=== PATIENT | male | born 1940 | race Caucasian/White ===

== ENCOUNTER 2017-08-29 07:32 | Inpatient (IN) | payer OTHER ==
[~2017-08-29] VITALS: Ht 182.9 cm; Wt 96.6 kg
[2017-08-29 07:33] VITALS: BP 137/90
[2017-08-29 08:17] LABS: BE -3.8 mmol/L (-2 to +3); HCO3 19.8 mmol/L (22.0-26.0); PCO2 32.6 mmHg (35.0-45.0); PO2 75.2 mmHg (75.0-100.0); pH 7.401 (7.340-7.450)
[2017-08-29 08:18] LABS: ABSOLUTE EOSINOPHILS 0.2 thou/uL (0.0-0.7); ABSOLUTE LYMPHOCYTES 2.1 thou/uL (0.8-5.3); ABSOLUTE NEUTROPHILS 4.9 thou/uL (1.6-8.1); BASOPHILS 0.6 %; EOSINOPHILS 2.3 %; HEMATOCRIT 48.1 % (42.0-52.0); HEMOGLOBIN 16.3 gm/dL (14.0-18.0); LYMPHOCYTES 25.3 %; MCH 29.7 pg (26.0-34.0); MCHC 33.8 g/dL (28.0-37.0); MCV 87.9 fL (80.0-100.0); MPV 8.8 fl. (7.2-11.1); NUCLEATED RBCS 0 /100WBC; PLATELET COUNT* 270 thou/uL (150-400); POLYS 59.8 %; RBC 5.48 mil/uL (4.50-6.00); RDW-CV 13.6 % (10.5-14.5); WBC 8.2 thou/uL (4.0-11.0)
[2017-08-29 08:39] LABS: ANION GAP 11 mmol/L (7-16); BUN 18 mg/dL (7-18); CALCIUM 9.7 mg/dL (8.5-10.1); CHLORIDE 95 mmol/L (98-107); CO2 25 mmol/L (21-32); CREATININE 1.3 mg/dL (0.6-1.3); GLUCOSE 171 mg/dL (70-99); SODIUM 131 mmol/L (136-145)
[2017-08-29 08:42] LABS: APTT 29.3 Seconds (25.0-31.3); INR 1.1; PROTIME 10.7 Seconds (9.20-11.50)
[2017-08-29] MEDS ORDERED: MELATONIN5 M1 PO (08:43)
[2017-08-29] MEDS ORDERED: ACETAMINOP160 MG/5 M PO (08:43)
[2017-08-29] MEDS ORDERED: ZANTAC 150MG T150 MG PO (08:44)
[2017-08-29] MEDS ORDERED: SCOPOLAMINE1 EACH TOP (08:44)
[2017-08-29 08:49] LABS: ALBUMIN 3.6 g/dL (3.4-5.0); ALKALINE PHOSPHATASE 95 U/L (46-116); SGOT 28 U/L (15-37); SGPT 46 U/L (30-65); TOTAL BILIRUBIN 1.1 mg/dL (<0.1-1.0); TOTAL PROTEIN 8.5 g/dL (6.4-8.2); TROPONIN-I LEVEL <0.06 ng/mL (<0.06)
[2017-08-29] MEDS ORDERED: LASIX 10 MG/10 MG/M1 PO (08:51)
[2017-08-29] MEDS ORDERED: POTASSIUM20 MEQ/15 PO (08:52)
[2017-08-29] MEDS ORDERED: ROXANOL PO ×3 (08:54→09:06)
[2017-08-29] MEDS ORDERED: LOPRESSOR50 PO (09:07)
[2017-08-29] MEDS ORDERED: OCUVITE TABLET1 EAC1 PO (09:12)
[2017-08-29] MEDS ORDERED: VITAMINC500 PO (09:12)
[2017-08-29 09:16] LABS: NT-PRO BRAIN NAT PEPTIDE 160 pg/mL (<300)
[2017-08-29 09:27] LABS: URINE BILIRUBIN NEGATIVE (Negative); URINE BLOOD NEGATIVE (Negative); URINE CLARITY CLEAR; URINE COLOR YELLOW; URINE GLUCOSE-RANDOM NEGATIVE (Negative); URINE KETONES TRACE (Negative); URINE LEUKOCYTES-REFLEX NEGATIVE (Negative); URINE NITRITE-REFLEX NEGATIVE (Negative); URINE PROTEIN NEGATIVE (Negative); URINE SPECIFIC GRAVITY 1.015 (1.005-1.030)
--- NOTE | 2017-08-29 10:52 | EKG ---
[place] [address] ELECTROCARDIOGRAM REPORT Name: VERONIKA ALFARO JR Room: [facility]#: [id number] Admission: 08/29/17 Attend Phys: Discharge: Date of : 42 Report #: [id number] THIS REPORT FOR: //name// [facility] [place] ED Test Date: 2017-08-29 Test Time: 07:37:13 Pat Name: VERONIKA ANGJUMarco A Department: Room: Gender: Business Insurance Agent: Kevin REYES : 1940 Requested By: Gloria Trevino Order Number: [id number] MD: Jhon Hendrix Measurements Intervals [place] Rate: 141 P: 16 MS: 132 QRS: 34 QRSD: 99 T: 57 QT: 286 QTc: 438 Interpretive Statements Sinus tachycardia Baseline wander in lead(s) V3,V4 No previous ECG available for comparison Electronically Signed On 08-29-2017 10:52:24 CDT by Jhon Hendrix [email or web address] <ELECTRONICALLY SIGNED> By: Jhon Hendrix MD, [facility] 08/29/17 1052 0737 6 Jhon Hendrix MD, FACC /EPI
[2017-08-29 11:35] VITALS: BP 108/84
--- NOTE | 2017-08-29 11:35 | NUR ---
DOCUMENTATION OF AVTAR FELIPE STUDENT REVIEWED & AGREE W/ SAME.
[2017-08-29 11:50] VITALS: BP 110/60
--- NOTE | 2017-08-29 11:50 | NUR ---
ADMIT NOTE - REC PT FROM ED. REPORT FROM [facility]. PT DIAGNOSED WITH ALS IN 06/2017 AND NOW UNABLE TO WALK. CURRENTLY ON HOSPICE. THIS AM, PT WAS VERY SOA AND FAMILY CALLED 911. PT WAS FOUND TO HAVE PNEUMONIA. PT GIVEN ONE DOSE OF ZOSYN AND 1 LITER OF NS IN ER. IV IN LA WITH NS AT 100ML FOR 24 HOURS, THEN SL. PT ALERT AND ORIENTED X 4. SLOW TO ANSWER QUESTIONS BUT DOES IT APPROPRIATELY. PT HAS HX OF INC OF STOOL AND URINE. PRESENT AT BEDSIDE. ORIENTED TO ROOM AND CALL LIGHT SYSTEM.
--- NOTE | 2017-08-29 15:15 | 2DMMODE ---
[place] [address] 2 D/M-MODE ECHOCARDIOGRAM Name: VERONIKA ALFARO JR Room: [address] IN [facility]#: [id number] Admission: 08/29/17 Attend Phys: Narayan Drummond Discharge: Date of : 42 Date of Service: 08/29/17 1514 Report #: [id number] THIS REPORT FOR: //name// APPROVED REPORT Study performed: 08/29/2017 13:47:30 EXAM: Comprehensive 2D, Doppler, and color-flow Echocardiogram Patient Location: In-Patient Room #: [facility] Status: routine BSA: 2.08 HR: 83 bpm BP: 140/65 mmHg Rhythm: NSR Other Information Technically limited study due to off axis imaging. Indications Dyspnea 2D Dimensions IVSd: 13.37 (7-11mm) LVOT Diam: 19.03 (18-24mm) LVDd: 25.44 mm PWd: 12.87 (7-11mm) Ascending Ao: 32.80 (22-36mm) LVDs: 20.26 (25-40mm) Aortic Root: 34.71 mm Aortic Valve AoV Peak Jj.: 1.42 m/s AO Peak Gr.: 8.04 mmHg LVOT Max P.46 mmHg AO Mean Gr.: 5.04 mmHg LVOT Mean P.41 mmHg LVOT Max V: 1.27 m/s AO V2 VTI: 23.15 cm LVOT Mean V: 0.86 m/s AZUL (VTI): 2.41 cm2 LVOT V1 VTI: 19.58 cm Pulmonary Valve PV Peak Jj.: 0.97 m/s PV Peak Gr.: 3.73 mmHg Left Ventricle The left ventricle is normal size. There is normal LV segmental wall motion. Mild concentric left ventricular hypertrophy. Left ventricular systolic function is normal[place] [address] 2 D/M-MODE ECHOCARDIOGRAM Name: VERONIKA ALFARO JR Room: [address] IN [facility].#: [id number] Admission: 08/29/17 Attend Phys: Narayan Drummond Discharge: Date of : 42 Date of Service: 08/29/17 1514 Report #: [id number] ejection fraction is within the normal range. LVEF is 60-65%. The left ventricular diastolic function is normal. Right Ventricle The right ventricle is normal size. The right ventricular systolic function is normal. Atria The left atrium size is normal. The right atrium size is normal. Aortic Valve The aortic valve is normal in structure. No aortic regurgitation is present. There is no aortic valvular stenosis. Mitral Valve There is mitral annular calcification. There is no mitral valve regurgitation noted. No evidence of mitral valve stenosis. Tricuspid Valve The tricuspid valve is normal in structure. Unable to assess PA pressure. Trace tricuspid regurgitation. Pulmonic Valve The pulmonary valve is normal in structure. There is no pulmonic valvular regurgitation. Great Vessels The aortic root is normal in size. The inferior vena cava is not well visualized. Pericardium There is no pericardial effusion. <Conclusion> Mild concentric left ventricular hypertrophy. LVEF is 60-65%. <ELECTRONICALLY SIGNED> By: Jhon Hendrix MD, FACC 08/29/17 1514 1514 1514 Jhon Hendrix MD, FACC /INF
--- NOTE | 2017-08-29 18:13 | NUR ---
SHIFT NOTE - PT ADMITTED AROUND NOON TODAY. INC OF URINE. USES URINAL AT TIMES. IV WITH NS AT 100ML/HR. AT BEDSIDE MOST OF THE DAY. PLACED SCOP PATCH BEHIND RT EAR. O2 AT 3L SAT 93%.
[2017-08-29 19:25] VITALS: BP 128/79
[2017-08-30] VITALS (7 sets, daily range): BP systolic 103–131; BP diastolic 58–92
--- NOTE | 2017-08-30 07:01 | NUR ---
RECEIVED REPORT AND ASSUMED CARE AT 1900. VSS. CARDIAC MONITORING IN PLACE. PT DENIES ANY COMPLAINTS OF PAIN. MEDICATION [place]EN[place] PER ORDERS. ASSESSMENT COMPELTED CHARTED. HOURLY ROUDNING COMPLETED, ALL NEEDS MET. POSITION CHANGES MADE EVERY 2 HOURS. PT REPORTED ABDOMINAL PAIN, BLADDER SCAN COMPLETED, >999. DIETRICH PLACED, 1250ML OUTPUT. PER PHYSICIAN OKAY TO LEAVE DIETRICH IN PLACE. WILL CONTINUE TO MONITOR FOR REMIANDER OF THE SHIFT
--- NOTE | 2017-08-30 15:59 | NUR ---
CM SPOKE TO THE PATIENT AND SPOUSE TO DISCUSS THE PATIENT'S HOME SITUATION, DISCHARGE PLANNING, AND TO INFORM OF THE ROLE OF CM. PATIENT RESTING WITH EYES CLOSED DURING ASSESSMENT. PATIENT'S SPOUSE INFORMS THAT THE PATIENT RESIDES AT HOME WITH HER AND SHE ASSIST HIM WITH CARES AT HOME, AND DOES ALL COOKING CLEANING AT HOME. PATIENT IS BED BOUND AT HOME. PATIENT ON-SERVICE WITH [facility] PRIOR TO ADMISSION, SIGNED A WAIVER TO COME TO THE HOSPITAL, BUT PLANS TO SIGN-ON WITH [facility] AT DISCHARGE. PATIENT HAS A HOSPITAL BED, ELECTRIC WHEELCHAIR, BSC, AND SHOWER CHAIR AT HOME. PATIENT HAS NO HX OF HH OR SNF. PATIENT CURRENTLY ON 02, BUT DID NOT USE 02 AT HOME PRIOR TO ADMISSION. CM WILL REMAIN AVAILABLE TO ASSIST AND FOLLOW NEEDED.
--- NOTE | 2017-08-30 17:21 | NUR ---
SHIFT NOTE - DIETRICH IN PLACE. STAT LOCK SECURED TO LEFT THIGH. IV IN LAC SL. PT TOLERATED TURNS WELL. O2 AT 2L NC. PRESENT AT BEDSIDE FOR MOST OF THE DAY. PT ABLE TO FEED HIMSELF (FAIR). POSSIBLE DC TOMORROW BACK HOME WITH HOSPICE (END STAGE ALS).
[2017-08-31 04:00] VITALS: BP 110/66
--- NOTE | 2017-08-31 05:00 | NUR ---
RECEIVED REPORT AND ASSUMED CARE AT 1900. VSS. CARDIAC MONITORING IN PLACE. ASSESSMENT COMPLETED CHARTED. PT DENIES ANY COMPLAINTS OF PAIN. DISCUSSED PLAN OF CARE WITH PT, VERBALIZED UNDERSTANDING. MEDICATION ADMIN PER EMAR. HOURLY ROUDNING COMPLETED. ALL NEEDS MET. PT ON BEDREST, 2L NC. POSITION CHANGE ENCOURAGED EVERY TWO HOURS, PT REFUSED. EDUCATED PT ON RISK FOR PRESSURE WOUNDS IF NOT OFFLOADING. PT VERBALIZED UNDERSTANDING, STILL REFUSING TURNS. BED LOCKED IN LOWEST POSITION, BED ALARM ON, CALL LIGHT WITHIN REACH. WILL CONTINUE TO MONITOR FOR REMAINDER OF THE SHIFT
[2017-08-31 08:00] VITALS: BP 117/61
[2017-08-31 12:00] VITALS: BP 112/62
[2017-08-31 15:41] VITALS: BP 129/70
--- NOTE | 2017-08-31 18:27 | NUR ---
SHIFT NOTE - PT ABLE TO GET UP TO COMMODE THIS EVENING WITH MAX 2 ASSIST. LARGE, SOFT STOOL. PT TOLERATED PILLS CRUSHED AND PLACED IN APPLESAUCE. DIETRICH REMAINS. PRESENT AT BEDSIDE MOST OF THE DAY.
[2017-08-31 19:45] VITALS: BP 120/70
[2017-09-01] VITALS: BP 124/71
[2017-09-01 04:00] VITALS: BP 125/71
--- NOTE | 2017-09-01 04:29 | NUR ---
RECEIVED REPORT AND ASSUMED CARE AT 1900. VSS. CARDIAC MONITORING IN PLACE. ASSESSMENT COMPLETED CHARTED. PT DENIES ANY COMPLAINTS OF PAIN. DISCUSSED PLAN OF CARE WITH PT. VERBALIZED UNDERSTANDING. PT ON BEDREST, 2L NC. WOULD LIKE TO HAVE O2 ORDERED FOR HOME WHEN HE IS DISCHARGED. PT ENCOURAGED AND OFFERED TO REPOSITION EVERY TWO HOURS, PT REFUSED. EDUCATED ON RISK OF PRESSURE SORES IF NOT OFF LOADING. PT VERBALIZED UNDERSTANDING, STILL REFUSING TO TURN. BED LOCKED IN LOWEST POSITION, CALL LIGHT WITHIN REACH, BED ALARM ON. HOURLY ROUDNING COMPLETED AND ALL NEEDS MET. WILL CONTINUE TO MONITOR FOR REMAINDER OF THE SHIFT
[2017-09-01 08:00] VITALS: BP 123/76
[2017-09-01 11:42] VITALS: BP 110/63
[2017-09-01] MEDS ORDERED: LEVAQUIN 750 M750 MG PO (14:54)
[2017-09-01] MEDS ORDERED: AZITHROMYCIN 2250 MG PO (14:54)
--- NOTE | 2017-09-01 15:04 | NUR ---
ASSESSMENT COMPLETED REFER TO COMPUTER CHARTING. PATIENT RESTING IN BED REPORTING NO PAIN, NAUSEA OR SHORTNESS OF BREATH. CALL LIGHT WITHIN REACH. AT BEDSIDE. PATIENT UP WITH MAX ASSIST X 2 TO THE BED SIDE COMMODE. DISCHARGE ORDERS RECIEVED. DISCHARGE INSTRUCTIONS GIVEN TO PATIENT AND . IV AND MANAGER INTEGRITY DISCONTINUED AND REMOVED. ALL PERSONAL BELONGINGS GATHERED AND SENT WITH PATIENT.
[2017-09-01 15:10] VITALS: BP 110/63
--- NOTE | 2017-09-01 15:20 | NUR ---
CM WAS INFORMED BY NURSING THAT DISCHARGE ORDERS HAVE BEEN WRITTEN FOR THE PATIENT. CM SPOKE OT THE PATIENT AND SPOUSE TO DISCUSS DISCHARGE PLANNING NEEDS, AND ANY QUESTIONS OR CONCERNS THAT THEY MIGHT HAVE. PATIENT AND SPOUSE HAVE NO QUESTIONS OR CONCERNS. PATIENT TO D/C HOME TODAY AND RE-SIGN WITH [facility]. CM SPOKE TO [facility] WITH [facility] TO INFORM OF THE [facility] D/C AND FAXED THE PATIENTS CLINICAL INFO, FACESHEET, AND D/C ORDERS. CM SETUP TRANSPORTATION WITH [facility] FOR 0220. CM INFORMED RN IN-CHARGE OF PATIENT OF TIME OF TRANSPORT AND WHERE TO CALL REPORT. CM WILL REMAIN AVAILABLE TO ASSIST AND FOLLOW NEEDED.
== END 2017-09-01 16:02 | disposition hospice, home (50) | DRG 177 ==
LOC: M.ERS 07:32 → M.2W 11:18 → M.TBA-ER 11:18 → M.2W 11:45
PROVIDERS: Personal Emergency Response Attendant; ADMIT Internal Medicine
DX: J69.0 Pneumonitis due to inhalation of food and vomit (principal); J96.20 Acute and chronic respiratory failure, unspecified whether with hypoxia or hypercapnia; G12.21 Amyotrophic lateral sclerosis; K59.00 Constipation, unspecified; K21.9 Gastro-esophageal reflux disease without esophagitis; G47.00 Insomnia, unspecified; Z87.891 Personal history of nicotine dependence; Z79.899 Other long term (current) drug therapy